=== PATIENT | male | born 1975 | race Caucasian/White ===

== ENCOUNTER 2016-07-24 18:29 | Emergency (ER) | payer OTHER ==
[~2016-07-24] VITALS: Ht 188 cm; Wt 88.5 kg
[2016-07-24 18:32] VITALS: BP 160/96
--- NOTE | 2016-07-24 18:34 | ED NECK/BACK PAIN COMPLAINT ---
History of Present Illness General Chief Complaint: Lower Extremity Problems Stated Complaint: PT IS HAVING BACK PAIN Source: patient Exam Limitations: no limitations Vital Signs & Intake/Output Vital Signs & Intake/Output Vital Signs Date Time Temp Pulse Resp B/P Pulse O2 O2 Flow FiO2 Ox Delivery Rate 07/24 1832 96.8 86 18 160/96 98 Room Air Allergies Coded Allergies: NO KNOWN ALLERGIES (05/07/14) Reconcile Medications Cyclobenzaprine HCl 10 MG TABLET 1 TAB PO QPM MUSCLE RELAXATION Ketorolac Tromethamine 10 MG TABLET 1 TAB PO TID PRN PAIN RECEIVED IM IN ER Methylprednisolone. (Medrol) 4 MG TAB.DS.PK 1 DP PO AD INFLAMMATION 6 on day 1 then reduce by one tablet daily until gone Triage Note: pt complains of low back pain , has history of back problems and states that he has been shoveling all day Triage Nurses Notes Reviewed? yes Onset: Gradual Duration: constant Timing: single episode today Quality/Severity: severe Location: lumbar spine, paraspinous muscles HPI: Patient is a 41-year-old male with a past medical history of chronic back pain and multilevel lumbar spine fusion performed remotely and was patient states that he was in his normal state of health today patient was shoveling snow and afterwards patient had a gradual onset of worsening generalized low back pain. Patient tried ibuprofen with no relief of symptoms. Patient does state that he has had a left-sided gluteal pain however he believes it is from his piriformis muscle due to recent exercising. Patient denies any extremity paresthesias or weakness saddle paresthesia or bowel bladder incontinence. Patient denies any mechanism of injury or acute onset of his pain. Past History Travel History Traveled to [place] past 21 day No Medical History Any Pertinent Medical History? 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 No Review of Systems Review of Systems Constitutional: Reports: no symptoms. Eyes: Reports: no symptoms. Ears, Nose, Throat, Mouth: Reports: no symptoms. Respiratory: Reports: no symptoms. Cardiovascular: Reports: no symptoms. Gastrointestinal/Abdominal: Reports: no symptoms. Musculoskeletal: Reports: see HPI, back pain, muscle pain, muscle stiffness. Skin: Reports: no symptoms. Neurological/Psychological: Reports: no symptoms. All Other Systems: Reviewed and Negative Physical Exam Physical Exam General Appearance: no apparent distress, alert Neck: normal inspection, supple, full range of motion Comments: Well-developed well-nourished person in no acute distress HEENT: Normal EENT exam Neck: Supple, no lymphadenopathy, normal range of motion without pain or tenderness Back: Noted surgical incision well-healing, generalized point tenderness noted decrease active range of motion Cardiovascular: Regular rate and rhythms no murmurs rubs or gallops, normal JVP Respiratory: Chest nontender. No respiratory distress.breath sounds clear to auscultation bilaterally Abdomen: Soft, nontender nondistended, no appreciable organomegaly. Normal bowel sounds. No ascites Extremity: No edema, no calf tenderness to palpation, normal and equal pulses. Bilateral lower extremity myotomes dermatomes intact DTRs intact Neuro: Alert oriented x3, motor sensory normal, Skin: No appreciable rash on exposed skin, skin is warm and dry. Psych: Mood and affect is normal, memory and judgment is normal. Progress Differential Diagnosis: AAA, carotid dissection, cauda equina syn, herniated disc, myofascial strain, pyelo/UTI, sciatica, spinal cord inj, thoracic outlet syn, T/L spine injury, ureterolithiasis Plan of Care: Current Medications Sig/Farshad Start time Last Medication Dose Stop Time Status Admin Ketorolac 30 MG ONCE ONE 07/24 1899 AC Tromethamine 07/24 1900 (Toradol) Prednisone 60 MG ONCE ONE 07/24 1899 AC 07/24 1900 Patient currently denies any mechanism of injury or fall. Patient has no number spine fusion and due to history of present illness that I suspect patient have muscular back pain. Patient has at this time no concerns of distal neurovascular compromise. Patient had normal steady gait on discharge. (SARINA SILVA,JOSELIN) Departure Departure Disposition: HOME OR SELF CARE Condition: Stable Clinical Impression Primary Impression: Low back pain Referrals: SMILEY PALMA,TERRENCE Ortega (PCP/Family) Additional Instructions: As discussed begin icing the area directly 20 minutes every 2 hours. BEGIN THE prescription of ketorolac for pain and inflammation. BEGIN THE prescription of Medrol Dosepak tomorrow as you've received prednisone in the emergency room today. Begin the prescription of cyclobenzaprine at night for muscle relaxation. Activity as tolerated. Follow-up with your surgeon on Saturday if no better. If symptoms worsen return to the emergency room. Prescriptions awaiting at [facility] pharmacy. Departure Forms: Customer Survey General Discharge Information Prescriptions: Current Visit Scripts Ketorolac Tromethamine 1 TAB PO TID PRN PAIN #15 TAB RECEIVED IM IN ER Methylprednisolone. (Medrol) 1 DP PO AD #1 DP 6 on day 1 then reduce by one tablet daily until gone Cyclobenzaprine HCl 1 TAB PO QPM #5 TAB
[2016-07-24] MEDS ORDERED: MEDROL4 M2 PO (18:49)
[2016-07-24] MEDS ORDERED: CYCLOBENZAPRINE10 M1 PO (18:49)
[2016-07-24] MEDS ORDERED: KETOROLAC TROME10 M1 PO (18:49)
== END 2016-07-24 19:12 ==
LOC: ERH 18:29
DX: M54.5 Low back pain (principal)
CPT/HCPCS: 96372; J1885